=== PATIENT | male | born 1975 | race Hispanic/Latino ===

== ENCOUNTER → 2018-09-04 | Outpatient (CLI) | payer BC | END | disposition home or self-care (01) | LOC: RAH 12:05 | PROVIDERS: ATTEND Internal Medicine | DX: K59.00 Constipation, unspecified (principal) | CPT/HCPCS: 74018 ==

== ENCOUNTER → 2021-06-05 | Outpatient (CLI) | payer OTHER | END | disposition home or self-care (01) | LOC: OIH 13:46 | PROVIDERS: ATTEND Internal Medicine | DX: Z13.6 Encounter for screening for cardiovascular disorders (principal) | CPT/HCPCS: 75571 ==